=== PATIENT | male | born 1980 | race Caucasian/White ===

== ENCOUNTER 2018-03-28 10:20 | Emergency (ER) | payer OTHER ==
[~2018-03-28] VITALS: Ht 162.6 cm; Wt 74.8 kg
[2018-03-28 13:37] VITALS: BP 130/74
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
[2018-03-28 14:42] LABS: ABSOLUTE BASOPHIL COUNT 0 /CUMM (0.0-0.2); ABSOLUTE EOSINOPHIL COUNT 0.1 /CUMM (0.0-0.7); ABSOLUTE GRANULOCYTE CT 6.5 /CUMM (1.4-6.5); ABSOLUTE LYMPH COUNT 1.4 /CUMM (1.2-3.4); ABSOLUTE MONOCYTE COUNT 0.3 /CUMM (0.10-0.60); BASOPHIL % 0.3 % (0.0-2.0); EOSINOPHIL % 1.6 % (0-5); GRANULOCYTE % 77.5 % (42.2-75.2); HEMATOCRIT 47.6 % (42-52); MEAN CORPUSCULAR HGB 29.1 PG (27.0-31.0); MEAN CORPUSCULAR HGB CONC 33.8 G/DL (33.0-37.0); MEAN CORPUSCULAR VOLUME 85.9 FL (80.0-94.0); MEAN PLATELET VOLUME 7.4 FL (7.4-10.4); PLATELET COUNT 235 /CUMM (130-400); RED BLOOD CELL CT 5.54 /CUMM (4.70-6.10); WHITE BLOOD CELL COUNT 8.4 /CUMM (4.8-10.8)
[2018-03-28] MEDS ORDERED: LISINOPRIL5 M1 PO (15:06)
[2018-03-28] MEDS ORDERED: METHADONE10 MG/1 M2 PO (15:06)
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
[2018-03-28] MEDS ORDERED: AUGMENTIN 875-1 EACH PO (15:36)
[2018-03-28] MEDS ORDERED: MECLIZINE HCL25 MG PO (15:36)
== END 2018-03-28 15:59 ==
LOC: ERH 10:20
PROVIDERS: Physician Assistant Medical
DX: R42 Dizziness and giddiness (principal); J32.9 Chronic sinusitis, unspecified; F11.20 Opioid dependence, uncomplicated; Z87.891 Personal history of nicotine dependence
CPT/HCPCS: 93005; 93010